=== PATIENT | female | born 1980 | race Caucasian/White ===

== ENCOUNTER → 2018-10-15 | Outpatient (CLI) | payer BC ==
[2016-05-14 15:30] VITALS: BP 135/64
[~2018-10-15] MED LIST: HYDR-3164 PO; NITR100C62 PO
[2018-10-15 10:07] LABS: BASO # 0.1 x10^3/uL (0.0-0.2); BASO % 1 % (0-3); EOS # 0.2 x10^3/uL (0.0-0.7); EOS % 3 % (0-3); HEMATOCRIT 41.6 % (36.0-47.0); LYMPH # 2.1 x10^3/uL (1.0-4.8); LYMPH % 37 % (24-48); MEAN CORPUSCULAR HEMOGLOBIN 31 pg (25-35); MEAN CORPUSCULAR HGB CONC 34 g/dL (31-37); MEAN CORPUSCULAR VOLUME 91 fL (79-100); MONO # 0.4 x10^3/uL (0.0-1.1); MONO % 7 % (0-9); NEUT # 2.9 x10^3uL (1.8-7.7); NEUT % 52 % (31-73); PLATELET COUNT 267 x10^3/uL (140-400); RED BLOOD COUNT 4.58 x10^6/uL (3.50-5.40); RED CELL DISTRIBUTION WIDTH 13.9 % (11.5-14.5); WHITE BLOOD COUNT 5.6 x10^3/uL (4.0-11.0)
[2018-10-15 10:27] LABS: ALBUMIN 4.4 g/dL (3.4-5.0); ALBUMIN/GLOBULIN RATIO 1.5 (1.0-1.7); CREATININE 0.9 mg/dL (0.6-1.0); GFR 70.8; POTASSIUM 3.6 mmol/L (3.5-5.1); TOTAL BILIRUBIN 0.8 mg/dL (0.2-1.0); TOTAL PROTEIN 7.4 g/dL (6.4-8.2)
[2018-10-15 18:17] LABS: FSH 13.4 mIU/mL (.); LUTEINIZING HORMONE 8.5 mIU/mL (.); PROGESTERONE 0.2 ng/mL (.)
== END | disposition home or self-care (01) ==
LOC: LAB 09:26
PROVIDERS: ATTEND Physician Assistant Medical
DX: B34.9 Viral infection, unspecified (principal); T14.8XXA Other injury of unspecified body region, initial encounter; X58.XXXA Exposure to other specified factors, initial encounter; Y93.89 Activity, other specified; Y92.89 Other specified places as the place of occurrence of the external cause; Y99.8 Other external cause status
CPT/HCPCS: 36415; 80053; 82672; 83001; 83002; 83540; 83550; 84144; 85025

== ENCOUNTER → 2018-12-02 | Outpatient (CLI) | payer BC ==
[2016-05-14 15:30] VITALS: BP 135/64
[~2018-12-02] MED LIST changes: +GADOBUTROL 10 MMOL/10 ML VIAL IV ONE; +OMEP20CA9 PO
--- NOTE | 2018-12-02 11:44 | KCIC ---
EXAMINATION: Magnetic resonance imaging (MRI) of the brain and pituitary without and with contrast 12/02/2018 10:15 AM HISTORY: Galactorrhea. Large pituitary, treated with medications. Random galactorrhea TECHNIQUE: Multiplanar multi-weighted MRI of the brain and brainstem was performed without and with intravenous contrast using the pituitary brain protocol. Contrast information: 7 mL Gadolinium based contrast COMPARISON: None available. FINDINGS: The scalp and calvarium are normal. The superior sagittal sinus demonstrates normal venous flow. The corpus callosum is normal in shape and signal intensity. The posterior fossa is unremarkable. The pituitary and sella are normal. Cavernous sinuses appear intact. Infundibulum is midline. The brainstem and craniocervical junction are unremarkable. Diffusion weighted images reveal no hyperintensities to suggest acute cerebral infarction. The susceptibility weighted sequences reveal no evidence of acute or chronic hemorrhage. The ventricles are normal in size and position without evidence of hydrocephalus. There are no areas of abnormal contrast enhancement. The paranasal sinuses are normal. The visualized portions of the mastoids are unremarkable. The orbits appear normal. Normal flow voids are demonstrated in the carotid arteries and basilar artery. IMPRESSION: No suspicious sellar or suprasellar mass is identified. Electronically signed by: Cinthya Rendon MD (12/02/2018 11:40 AM) [facility]
== END | disposition home or self-care (01) ==
LOC: KCIC MRI 10:02
PROVIDERS: ATTEND Physician Assistant Medical
DX: O92.6 Galactorrhea (principal); Z88.1 Allergy status to other antibiotic agents
CPT/HCPCS: 70553; A9585